=== PATIENT | female | born 1970 | race Caucasian/White ===

== ENCOUNTER 2016-12-02 19:53 | Emergency (ER) | payer MEDICAID, OTHER ==
[~2016-12-02] VITALS: Ht 172.7 cm; Wt 125.0 kg
[~2016-12-02 19:53] MED LIST: ADVA250A INH; AMIT25TA20 PO; COMBAER INH; DEPA500T3 PO; NEUR300C PO; RISP2TAB2 PO; ZYPR15TA PO
[2016-12-02 20:00] VITALS: BP 88/58; PULSE 70; RESP 16; TEMP 98.2; O2SAT 98
[2016-12-02 20:46] VITALS: PULSE 77
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
[2016-12-02 21:15] LABS: AUTOMATED NEUTROPHIL # 4.8 TH/MM3 (1.8-7.7); BASOPHIL % 0.3 % (0.0-2.0); EOSINOPHIL # 0.2 TH/MM3 (0-0.4); HEMATOCRIT 42.7 % (35.0-46.0); HEMO FLAGS DIFF FINAL; LYMPH % 27.4 % (9.0-44.0); LYMPHOCYTE # 2.1 TH/MM3 (1.0-4.8); MEAN CELL VOLUME 91.4 FL (80.0-100.0); MEAN CORPUSCULAR HEMOGLOBIN 30.6 PG (27.0-34.0); MEAN CORPUSCULAR HGB CONC 33.4 % (32.0-36.0); MONO % 8.7 % (0.0-8.0); NEUT % 61.6 % (16.0-70.0); PLATELET COUNT 169 TH/MM3 (150-450); RED BLOOD COUNT 4.67 MIL/MM3 (4.00-5.30); RED CELL DISTRIBUTION WIDTH 14.1 % (11.6-17.2); WHITE BLOOD COUNT 7.7 TH/MM3 (4.0-11.0)
[2016-12-02] MEDS ORDERED: SODIUM CHLOR 0.9% 1000 ML INJ 1,000 ML IV ONE (21:15)
--- NOTE | 2016-12-02 21:18 | RADRPT ---
EXAM DATE/TIME: 12/02/2016 20:42 [place] COMPARISON: CHEST SINGLE AP, October 14, 2013, 1:12. INDICATIONS : Cough. MEDICAL HISTORY : None. SURGICAL HISTORY : None. ENCOUNTER: Initial ACUITY: 1 day PAIN SCORE: 0/10 LOCATION: Bilateral chest FINDINGS: A single view of the chest demonstrates the lungs to be symmetrically aerated without evidence of mas s, infiltrate or effusion. The cardiomediastinal contours are unremarkable. There are chronic deform ities of the humeral heads bilaterally. CONCLUSION: No acute disease. Saul Benito MD on December 02, 2016 at 21:15 Board Certified Radiologist. This report was verified electronically.
[2016-12-02 21:19] LABS: BACTERIA, URINE RARE /hpf; BLOOD, URINE NEG (NEG); COMMENT (UR) CULT NOT INDICATED; CULTURE IF INDICATED CULT NOT INDICATED; GLUCOSE,URINE NEG (NEG); KETONE, URINE NEG (NEG); MUCUS URINE FEW /lpf (OCC); NITRITE,URINE NEG (NEG); SQUAMOUS EPITHELIAL CELL URINE <1 /hpf (0-5); URINE COLOR YELLOW (YELLW/STRAW)
[2016-12-02 21:21] LABS: AMPHETAMINE, URINE NEG (NEG); BARBITURATES, URINE NEG (NEG); COCAINE, URINE NEG (NEG)
[2016-12-02 21:27] LABS: ANION GAP 8 MEQ/L (5-15); AST (GOT) 25 U/L (15-37); BICARBONATE 24.2 MEQ/L (21.0-32.0); BLOOD UREA NITROGEN 18 MG/DL (7-18); CHLORIDE 111 MEQ/L (98-107); GLOMERULAR FILTRATION RATE 67 ML/MIN (>89); MAGNESIUM 2.2 MG/DL (1.5-2.5); POTASSIUM 3.6 MEQ/L (3.5-5.1); SODIUM (NA) 143 MEQ/L (136-145)
[2016-12-02 21:39] LABS: ALKALINE PHOSPHATASE 119 U/L (45-117); ALT (GPT) 47 U/L (10-53); TOTAL BILIRUBIN ADULT 0.3 MG/DL (0.2-1.0)
[2016-12-02 22:40] VITALS: BP 122/65; PULSE 60; RESP 16; O2SAT 99
[2016-12-03 02:17] VITALS: BP 118/63; PULSE 62; RESP 16; O2SAT 99
[2016-12-03 07:39] VITALS: BP 118/70; PULSE 50; RESP 19; O2SAT 100
[2016-12-03 09:31] VITALS: BP 124/71
== END 2016-12-03 15:58 | disposition home or self-care (01) ==
LOC: NEPC 19:53
DX: F31.9 Bipolar disorder, unspecified (principal); R56.9 Unspecified convulsions
CPT/HCPCS: 71010; 80053; 80307; 81001; 83690; 83735; 84443; 85025; 99285; J7030